=== PATIENT | female | born 2000 | race African-American/Black ===

== ENCOUNTER 2024-04-30 07:53 | Emergency (ER) | payer SELFPAY ==
[~2024-04-30] VITALS: Ht 154.9 cm; Wt 101.2 kg
[2024-04-30] MEDS ORDERED: NEXPLANON68 MG (08:15)
[2024-04-30 08:24] VITALS: PULSE 83; RESP 16; TEMP 97.6; O2SAT 99
== END 2024-04-30 08:24 | disposition home or self-care (01) ==
LOC: FSED 08:01
DX: R21 Rash and other nonspecific skin eruption (principal)
CPT/HCPCS: 99282